=== PATIENT | male | born 1985 | race Hispanic/Latino ===

== ENCOUNTER 2021-05-07 09:53 | Emergency (ER) | payer OTHER ==
[~2021-05-07] VITALS: Ht 182.9 cm; Wt 123.4 kg
[2021-05-07 10:00] VITALS: BP 158/88
[2021-05-07] MEDS ORDERED: HYDR28GE TP (10:31)
== END 2021-05-07 10:37 | disposition home or self-care (01) ==
LOC: EDH 09:53
DX: L25.9 Unspecified contact dermatitis, unspecified cause (principal)
CPT/HCPCS: 99282

== ENCOUNTER 2023-03-15 04:07 | Emergency (ER) | payer OTHER ==
[~2023-03-15] VITALS: Ht 180.3 cm; Wt 121.6 kg
[~2023-03-15 04:07] MED LIST: HYDR28GE TP
[2023-03-15] MEDS ORDERED: SOLU-MEDROL 125MG VIAL IVP ONE ×2 (06:00→13:00)
[2023-03-15] MEDS ORDERED: DiphenhydrAMINE HCL 50 MG/ML VIAL IV ONE (06:00)
[2023-03-15] MEDS ORDERED: EPINEPHRINE PF 1MG (1:1,000) 1 MG/ML AMP IM ONE ×2 (06:00→07:00)
[2023-03-15] MEDS ORDERED: FAMOTIDINE 20MG VIAL IV ONE (07:00)
[2023-03-15 07:43] LABS: AMPHET/METH SCREEN,URINE NEGATIVE (NEGATIVE); BARBITURATE SCREEN, URINE NEGATIVE (NEGATIVE); BENZODIAZEPINES SCREEN,URINE NEGATIVE (NEGATIVE); CANNABINOID SCREEN,URINE NEGATIVE (NEGATIVE); COCAINE SCREEN,URINE POSITIVE (NEGATIVE); OPIATE SCREEN,URINE NEGATIVE (NEGATIVE); PHENCYCLIDINE SCREEN,URINE NEGATIVE (NEGATIVE)
[2023-03-15 11:16] LABS: BASOPHILS # (AUTO) 0.03 K/uL (0.00-0.20); BASOPHILS % (AUTO) 0.4 % (0.0-5.0); HEMATOCRIT 41.6 % (42-54); IMMATURE GRANULOCYTE ABSOLUTE 0.05 K/uL (0-1); LYMPHOCYTES # (AUTO) 0.6 K/uL (1.0-4.8); LYMPHOCYTES % (AUTO) 6.7 % (21.0-51.0); MEAN CORPUSCULAR HEMOGLOBIN 31.2 pg (27.0-33.0); MEAN CORPUSCULAR HGB CONC 35.6 g/dL (32.0-36.0); MEAN CORPUSCULAR VOLUME 87.8 fL (79-99); MONOCYTES # (AUTO) 0.1 K/uL (0.1-1.0); MONOCYTES % (AUTO) 0.7 % (3.0-13.0); NEUTROPHILS # (AUTO) 7.5 K/uL (1.8-7.7); NEUTROPHILS % (AUTO) 91.6 % (40.0-77.0); PLATELET COUNT (AUTO) 253 K/uL (130-400); RED BLOOD CELL COUNT(AUTO) 4.74 MIL/uL (4.50-6.20); RED CELL DISTRIBUTION WIDTH 12.3 % (11.0-15.5); WHITE BLOOD COUNT (AUTO) 8.2 K/uL (4.8-10.8)
[2023-03-15 11:26] LABS: CREATININE 0.8 mg/dL (0.5-1.5); POTASSIUM 4.4 mmol/L (3.5-5.1)
[2023-03-15 11:31] LABS: ALBUMIN 3.8 g/dL (3.5-5.0); BILIRUBIN,TOTAL 0.5 mg/dL (0.2-1.0); TOTAL PROTEIN, SERUM 7.4 g/dL (6.0-8.3)
[2023-03-15 17:53] VITALS: BP 133/69; PULSE 89; RESP 18; O2SAT 98
== END 2023-03-15 17:51 | disposition left against medical advice (07) ==
LOC: EDH 04:07
DX: T28.0XXA Burn of mouth and pharynx, initial encounter (principal); K92.0 Hematemesis; R60.9 Edema, unspecified; F14.90 Cocaine use, unspecified, uncomplicated; X08.8XXA Exposure to other specified smoke, fire and flames, initial encounter; Y93.89 Activity, other specified; Y92.89 Other specified places as the place of occurrence of the external cause; Y99.8 Other external cause status
CPT/HCPCS: 99285; 96374; 70486; 71045; 96375; 83735; 80053; 80305; 85025; 36415; 96376; 96372 ×2; J1200; J3490; J2930 ×2; J0171